=== PATIENT | male | born 1995 | race Caucasian/White ===

== ENCOUNTER 2019-11-19 10:12 | Emergency (ER) | payer BC, SELFPAY ==
--- NOTE | ~2019-11-19 | XR_ITS ---
XR elbow LT min 3V 11/19/2019 11:05 Indication: Left elbow pain after fall Procedure: 4 views left elbow Comparison: No prior studies for comparison. Findings: There is a nondisplaced radial head fracture. Lateral views limited for evaluation of joint effusion due to rotation. No other fracture identified. Impression: 1: Nondisplaced radial head fracture. Reviewed, dictated and finalized at location A. Impression: 1: Nondisplaced radial head fracture.
[2019-11-19 10:20] VITALS: BP 141/86; PULSE 88; RESP 20; TEMP 36.4; O2SAT 98
--- NOTE | 2019-11-19 11:03 | ED.UPPEXIN ---
HPI - Extremity Injury (Upper) General Chief Complaint: Extremity Injury, Upper Stated Complaint: Left arm Pain Source: patient Mode of arrival: ambulatory Limitations: no limitations History of Present Illness HPI narrative: Pt fell down the stairs a few days ago and hit his elbow. He said it has been stiff and sore ever since the fall. complaint: injury to: left Other Extremity Injury: Left: elbow Other injuries: none Place: home Relieving factors: none Exacerbating factors: movement of extremity Context: fall Associated symptoms: denies other symptoms Treatments prior to arrival: cold therapy Related Data Allergies Allergy/AdvReac Type Severity Reaction Status Date / Time No Known Allergies Allergy Verified 11/19/19 10:33 Review of Systems Review of Systems: All systems reviewed & are unremarkable except as noted in HPI and below PMFSH Social History Social History (Updated 11/19/19 @ 11:05 by Latonia Lucero MD) Smoking status: Never smoker Alcohol intake: never Substance use: never Exam Const: General: no acute distress Nutritional Appearance: well nourished Orientation/consciousness: patient oriented x3 HENMT: Head: normal to inspection Eyes: Conjunctivae: conjunctivae normal Neck: Neck: normal visual inspection Chest: Chest palpation & inspection: normal inspection of the chest Resp: Effort & Inspection: normal respiratory effort Skin: General skin exam: normal color Rashes: no rashes Neuro: General: patient oriented x3 and moves all extremities Extrem: Other: left elbow tender over radial head, and pain on supenation of left wrist Psych: Appearance: grossly normal Mental Status: mental status grossly normal Thought content: Yes Normal thought content present Course Vital Signs Vital signs: Vital Signs Temperature 36.4 C L 11/19/19 10:20 Pulse Rate 88 11/19/19 10:20 Respiratory Rate 20 11/19/19 10:20 Blood Pressure 141/86 H 11/19/19 10:20 Pulse Oximetry 98 11/19/19 10:20 Temperature 36.4 C L 11/19/19 10:20 Pulse Rate 88 11/19/19 10:20 Respiratory Rate 20 11/19/19 10:20 Blood Pressure 141/86 H 11/19/19 10:20 Pulse Oximetry 98 11/19/19 10:20 Critical Care Time Critical Care Time Critical Care Time: No Discharge Plan Discharge Clinical Impression: Fracture of radial head, closed Qualifiers: Encounter type: initial encounter Fracture alignment: nondisplaced Laterality: left Qualified Code(s): S52.125A - Nondisplaced fracture of head of left radius, initial encounter for closed fracture Patient Disposition: Home, Self-Care Condition: Stable Instructions: Antibiotic Form, Arm Fracture in Adults (ED), How to Use a Sling (ED) Prescriptions: New naproxen 500 mg tablet 500 mg PO BID PRN (Reason: pain) Qty: 20 RF: 0 Follow-up/Referrals: Kishore Motta M.D. [Primary Care Provider] - Time of Disposition: 11:25
== END 2019-11-19 11:50 | disposition home or self-care (01) ==
PROVIDERS: Emergency Provider Emergency Medicine; PCP Family Medicine
DX: S52.125A Nondisplaced fracture of head of left radius, initial encounter for closed fracture (principal); W10.9XXA Fall (on) (from) unspecified stairs and steps, initial encounter
CPT/HCPCS: 29125; 73080; 99283; 99284; A4565

== ENCOUNTER 2020-04-26 18:07 | Emergency (ER) | payer SELFPAY ==
--- NOTE | 2020-04-26 18:14 | ED.EYEPROB ---
HPI - Eye Problem General Chief complaint: Eye Problems Stated complaint: right eye Source: patient, family and RN notes reviewed Mode of arrival: ambulatory Limitations: no limitations History of Present Illness HPI Narrative: patient thinks he may have gotten a strong ink in his right eye this morning. It has become more red throughout the day irritated burning. No significant discharge. No change in vision. chief complaint: eye pain and eye redness Onset (ago): hour(s) (12) Onset description: sudden Duration: constant Location: right eye Eye Symptoms: burning and redness Place: work Mechanism: chemical exposure (possibly) Severity: moderate If Pain, Quality: burning Associated symptoms: none Treatments Prior to Arrival: irrigated eye and removed contact lens Related Data Allergies Allergy/AdvReac Type Severity Reaction Status Date / Time No Known Allergies Allergy Verified 11/19/19 10:33 Review of Systems Review of Systems: All systems reviewed & are unremarkable except as noted in HPI and below PMFSH Past Medical History Medical History (Updated 04/26/20 @ 18:35 by Robert Ozuna MD) No active medical problems Surgical History Surgical History (Updated 04/26/20 @ 18:32 by Robert Ozuna MD) No pertinent past surgical history Social History Social History (Updated 04/26/20 @ 18:33 by Robert Ozuna MD) Smoking status: Never smoker Alcohol intake: current Alcohol use details: occasional Substance use: never Exam Const: General: healthy appearing, no acute distress and alert Nutritional Appearance: well nourished Orientation/consciousness: patient oriented x3 HENMT: Head: normal to inspection Ears: external ears normal Eyes: Eyelids: eyelid abnormality right lower eyelid erythema and swelling Conjunctivae: conjunctival abnormality right conjunctival injection diffuse Cornea: corneas normal Pupils: Equal, round and reactive pupils present EOM: EOMs intact bilaterally Neck: Neck: normal visual inspection Resp: Effort & Inspection: normal respiratory effort Auscultation: clear to auscultation bilaterally Cardio: Rate: regular rate Rhythm: regular rhythm GI: Auscultation: normal bowel sounds Back/Spine/Pelvis: Cervical Spine: cervical ROM normal Thoracic/Lumbar Spine: thoraco-lumbar ROM normal Skin: General skin exam: normal color Rashes: no rashes Neuro: General: patient oriented x3, moves all extremities and no focal motor deficits Speech: normal speech Gait exam (Neuro): Normal gait present Extrem: General: normal to inspection and no clubbing, cyanosis or edema Psych: Appearance: grossly normal and well kempt Mental Status: mental status grossly normal Affect: normal affect Attitude: cooperative Thought content: Yes Normal thought content present Course Course Emergency Course: Right upper eyelid is inverted and no foreign bodies appreciated. No other foreign body appreciated on direct examination. Discharge Plan Discharge Clinical Impression: Bacterial conjunctivitis Patient Disposition: Home, Self-Care Condition: Stable Instructions: Conjunctivitis (ED) Prescriptions: New tobramycin 0.3 % drops 2 drp RIGHT EYE TID Qty: 5 RF: 0 Follow-up/Referrals: Kishore Motta M.D. [Primary Care Provider] - Time of Disposition: 18:36
[2020-04-26 18:17] VITALS: BP 148/80; PULSE 80; RESP 16; TEMP 36.8; O2SAT 98
== END 2020-04-26 18:38 | disposition home or self-care (01) ==
PROVIDERS: Emergency Provider Emergency Medicine; PCP Family Medicine
DX: H10.89 Other conjunctivitis (principal)
CPT/HCPCS: 99283

== ENCOUNTER 2020-11-27 17:15 | Outpatient (CLI) | payer BC, SELFPAY ==
[2020-11-27 18:22] LABS: SARS-CoV-2 RNA PCR Positive (Negative)
== END 2020-11-27 17:16 | disposition home or self-care (01) ==
LOC: CHSLAB 17:18
PROVIDERS: PCP Family Medicine; Visit Provider Family Medicine
DX: U07.1 COVID-19 (principal)
CPT/HCPCS: C9803; U0003; U0005

== ENCOUNTER 2021-07-21 06:53 | Emergency (ER) | payer OTHER, BC, SELFPAY ==
--- NOTE | ~2021-07-21 | XR_ITS ---
EXAMINATION: XR finger 4th RT min 2V DATE: 07/21/2021 07:46 INDICATION: Right hand injury. TECHNIQUE: 4 views of right hand fourth digit were obtained. COMPARISON: None. FINDINGS: Bone alignment is normal. No fracture. Joint spaces are well maintained. IMPRESSION: 1. No fracture. Reviewed, dictated and finalized at location B. IMPRESSION: 1. No fracture.
[2021-07-21 07:00] VITALS: BP 134/78; PULSE 71; RESP 14; TEMP 36.6; O2SAT 98
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
[2021-07-21] MEDS: ACETAMINOPHEN 325 MG TABLET 650 MG PO (07:31)
[2021-07-21] MEDS: IBUPROFEN 600 MG TABLET PO (07:31)
[2021-07-21 08:16] VITALS: BP 121/67; PULSE 65; RESP 16; TEMP 36.3; O2SAT 99
== END 2021-07-21 08:23 | disposition home or self-care (01) ==
PROVIDERS: Emergency Provider Emergency Medicine; PCP Family Medicine
DX: S60.141A Contusion of right ring finger with damage to nail, initial encounter (principal); W22.8XXA Striking against or struck by other objects, initial encounter
CPT/HCPCS: 73140; 99283; A9270

== ENCOUNTER 2021-09-02 14:22 | Outpatient (RCR) | payer OTHER, BC, SELFPAY ==
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
--- NOTE | 2021-09-30 15:34 | PTOPEVAL ---
Thank you for referring Eron Pedraza to [facility].? The patient is scheduled to be seen for therapy? ____x/week for ___ weeks. Please review, sign, date and return this plan of care [place]. I agree with and certify that the following plan of care is medically necessary. Referring Physician Date Admitting Provider: Attending Provider: LETTY BENSON Referring Provider: *PT Outpatient Evaluation Start: 09/02/21 14:28 Freq: Status: Active Protocol: Document 09/30/21 14:30 Martínez (Rec: 09/30/21 15:[address] [facility] [email or web address]) Therapy Assessment Status Assessment Status Assessment Status Re-evaluation Evaluation Information Problem Diagnosis generalized weakness Onset 07/26/21 Additional Evaluation Detail LEFS = 66% functionally declined Subjective Information patient reports he is better Query Text:As Reported By Patient/ overall. he reports he is Family still limited in his mobility of his L knee, and tends to limp still with ambulation. Pain Assessment Timing of Pain Assessment Timing of Pain Assessment Assessment Pain Scale Pain Scale Used Numeric (1 - 10) Self Report Pain Assessment Left Knee(s) Reported Pain Level 3 Greatest Pain Intensity 4 Pain Score Pain Score 3: Self Report Interventions Used Interventions Used By Clinicians Activity or ADL's,Education, Exercise Lower Extremity Range of Motion General Lower Extremity Range of Motion Gross Lower Extremity Range of Motion 0 degrees arom L knee Comments extension 88 degrees prom L knee flexion Lower Extremity Muscle Strength Testing General Lower Extremity Strength Gross Lower Extremity Strength -left hip flexion 4/5 -left knee flexion 4+/5 -left knee extension 4+/5 -L ankle DF = 5/5 -left ankle PF 4+/5 Muscle Length Testing Muscle Length Testing Muscle Length Testing Comments moderate L quadriceps tightness Gait Assessment Gait Pattern Assessment Other Gait Observations patient ambulates with antalgia favoring the L LE still with decreased terminal stance/toe off Stair Climbing Assessment Stair Climbing Assessment Stair Climbing Comments patient ambulates with antalgia up and down steps with reciprocal pattern with hip hike on the L to climb steps, and hips turned L and
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
== END 2021-11-10 13:50 | disposition home or self-care (01) ==
LOC: CHSPT 14:22
DX: R53.81 Other malaise (principal); S81.002A Unspecified open wound, left knee, initial encounter; S22.001A Stable burst fracture of unspecified thoracic vertebra, initial encounter for closed fracture; S27.322A Contusion of lung, bilateral, initial encounter; T14.8XXA Other injury of unspecified body region, initial encounter; R26.89 Other abnormalities of gait and mobility
CPT/HCPCS: 97110; 97161; 97530